=== PATIENT | female | born 1935 | race Caucasian/White ===

== ENCOUNTER 2016-04-10 17:03 | Observation (INO) | payer MEDICARE, MEDICAID ==
[2016-04-10 18:09] LABS: AUTOMATED BASOPHIL 0.9 % (0-2); AUTOMATED EOSINOPHIL 2.3 % (0-5); AUTOMATED LYMPH 31.8 % (17-44); AUTOMATED MONOCYTE 8.2 % (3-10); AUTOMATED NEUTROPHIL 56.8 % (45-76); MPV 12.2 fL (7.4-10.4)
[2016-04-10 18:20] LABS: PARTIAL THROMB. TIME 23.8 SEC (22-35)
[2016-04-10 18:29] LABS: BLOOD UREA NITROGEN 23 MG/DL (7-17); CALCIUM 9.8 MG/DL (8.4-10.2); CALCULATED OSMOLALITY 275 MOs/Kg (270-290); CHLORIDE 101 mEq/L (98-107); GLUCOSE 127 MG/DL (70-99); SODIUM LEVEL 140 mEq/L (137-146); TOTAL PROTEIN 7.8 G/DL (6.3-8.2)
[2016-04-10 19:10] LABS: LEUKOCYTES/URINE 2+ (NEGATIVE); URINE OCCULT BLOOD 1+ (NEG/TRACE); WBC/URINE 30-40 (0-5)
--- NOTE | 2016-04-10 19:11 | DIRPT ---
CLINICAL DATA: Chest pain. EXAM: PORTABLE CHEST 1 VIEW COMPARISON: None. FINDINGS: Cardiomediastinal silhouette is normal. Mediastinal contours appear intact. Mixed dense structure overlying the lower mid thorax likely represents hiatal hernia. Atherosclerotic calcifications and tortuosity of the aorta are noted. There is no evidence of focal airspace consolidation, pleural effusion or pneumothorax. Osseous structures are without acute abnormality. Soft tissues are grossly normal. IMPRESSION: No active disease. Electronically Signed By: mAber Loredo M.D. On: 04/10/2016 19:08
[2016-04-10 19:15] LABS: NITRITE/URINE POS (NEGATIVE)
[2016-04-10] MEDS ORDERED: Levofloxacin 750 mg/150 ml D5W 750 MG/150 ML RTU IV ONE (19:30)
--- NOTE | 2016-04-10 19:38 | EDPRACDOC ---
- General Information Information Source: Patient, Family - History of Present Illness Onset: yesterday Exact Onset of Symptoms: Unknown HPI: PT PRESENTS TODAY WITH FAMILY FOR AMS. FAMILY STATES THAT PT TENDS TO HALLUCINATE WHEN SHE GETS A UTI. PT HAS SEVERAL CHRONIC COMPLAINTS ("SOMETIMES " CP, SHOB, DIARRHEA, LEG PAIN). FAMILY STATES THAT PT HAS BEEN SEEING VEHICLES IN THE DRIVE WAY AND A MAN LAYING AT THE FOOT OF HER BED. PT DOES NOT APPEAR TO BE IN DISTRESS. FAMILY DENIES ANY OTHER SYMPTOMS. Symptoms began: Gradually Duration: Since Onset Symptoms Currently: Reports: Unchanged Altered Quality: Reports: Change in Behavior, Confusion Altered Severity: Reports: Moderate Recent Symptoms of: Reports: None Relevant History: Reports: None <Jessica Shaffer - Last Filed: 04/10/16 19:40> <Myla Rojas - Last Filed: 04/10/16 19:42> - General Information Chief Complaint: Altered Mental Status Stated Complaint: ? UTI PER FAMILY Time Seen by Provider: 04/10/16 18:38 Home Medications: Home Medications Aspirin [Aspirin, Chewable] 81 mg PO DAILY 06/20/12 Celecoxib (anti-inflammatory) [Celebrex] 200 mg PO DAILY 05/15/13 CloNIDine (Antihypertensive) [Catapres] 0.1 mg PO HS 05/15/13 Diazepam [Valium] 5 mg PO DAILY PRN 05/15/13 Hydrocodone/Acetaminophen [Hydrocodon-Acetaminoph 7.5-325] 1 tab PO TID PRN Pravastatin [Pravachol] 80 mg PO HS 05/15/13 Cholecalciferol [Vitamin D3 (cholecalciferol)] 1,000 units PO DAILY 11/25/13 Cyanocobalamin (Vitamin B-12) [Vitamin B-12] 1,000 mcg PO DAILY 11/25/13 Duloxetine HCl 30 mg PO DAILY 11/25/13 Acetaminophen Tablet [TYLENOL Tablet] 650 mg PO TID 04/10/16 Metoprolol Tartrate [Lopressor] 25 mg PO BID 04/10/16 Olanzapine [Zyprexa] 2.5 mg PO 2000 04/10/16 Valsartan/Hydrochlorothiazide [Valsartan-Hctz 320-25 mg Tab] 1 tab PO DAILY Allergies/Adverse Reactions: Allergies Allergy/AdvReac Type Severity Reaction Status Date / Time fentanyl Allergy See Verified 04/10/16 17:45 Comments niacin Allergy Rash-Genera Verified 04/10/16 17:45 [From Niaspan lized Extended-Release] ED Past Medical History - History Reviewed Yes Nurses notes reviewed and agree except as marked - Patient Medical History Cardiac History: Reports: Hypertension, Hypercholesterolemia Respiratory History: Denies: Pneumonia GI/ History: Reports: Urinary Tract Infection, Gastroesophageal Reflux Musculoskeletal History: Reports: Arthritis (Worse in back, hands), Osteoarthritis Psychological History: Reports: Anxiety. Denies: Depression Systemic History: Denies: Cancer Surgical History: Reports: Hysterectomy ([facility] 1976). Denies: Tonsillectomy/ Adnoidectomy - Family Medical History Reports: Cancer (MOM-STOMACH) - Social Medical History Smoking Status: Former smoker Social History: Denies: Barbiturate Use <Jessica Shaffer - Last Filed: 04/10/16 19:40> EDM Review of Systems - Review of Systems ROS Negative Except as Marked: Yes All systems reviewed and were negative except as marked ROS Unobtainable: Yes Hx Limited due to age/level of understanding of patient Constitutional: No Symptoms Reported Respiratory: Shortness of Breath ("SOMETIMES") Cardiovascular: Chest Pain ("SOMETIMES") Gastrointestinal: Diarrhea (X 4 MONTHS) Genitourinary: No Symptoms Reported Neurological: Other (HALLUCINATIONS) Musculoskeletal: Leg (CHRONIC PAIN) Integumentary: No Symptoms Reported <Jessica Shaffer - Last Filed: 04/10/16 19:40> - Physical Exam Constitutional: Alert (Awake), No apparent distress Oriented to: Time, Person, Place Last recorded Vital Signs: Last Vital Signs Temp 98.5 F 04/10/16 17:45 Pulse 87 04/10/16 17:47 Resp 18 04/10/16 17:47 BP 155/85 04/10/16 17:47 Pulse Ox 100 04/10/16 17:47 Oxygen Pulse Oxygen Saturation 100 O2 Device Room Air Oxygen Flow Rate Fraction of Inspired Oxygen ( FIO2) - HEENT Head: Normal Eye Exam: Normal Neck: Normal, Denies Pain, Midline - Respiratory/Cardiovascular Respiratory: Normal - CTA Cardiovascular: Normal - GI Auscultation: Normal Palpation: Normal Tenderness: Non tender - Musculoskeletal Back: Normal Extremities: Normal - Integumentary Skin: Normal Lymphatics: Normal - Neurologic Cerebellar: Unable to Test <Jessica Shaffer - Last Filed: 04/10/16 19:40> - Physical Exam Last recorded Vital Signs: Last Vital Signs Temp 98.5 F 04/10/16 17:45 Pulse 87 04/10/16 17:47 Resp 18 04/10/16 17:47 BP 155/85 04/10/16 17:47 Pulse Ox 100 04/10/16 17:47 Oxygen Pulse Oxygen Saturation 100 O2 Device Room Air Oxygen Flow Rate Fraction of Inspired Oxygen ( FIO2) <Myla Rojas - Last Filed: 04/10/16 19:42> - Results 04/10/16 17:50 04/10/16 17:50 WBC 8.3 xk/uL (3.8-10.8) 04/10/16 17:50 RBC 4.42 xM/uL (4.20-5.40) 04/10/16 17:50 Hgb 13.8 g/dL (12.0-16.0) 04/10/16 17:50 Hct 40.6 % (36-47) 04/10/16 17:50 MCV 92 fL (81-99) 04/10/16 17:50 MCH 31.3 pg (27-32) 04/10/16 17:50 MCHC 34.0 g/dl (33-36) 04/10/16 17:50 RDW 13.9 % (11.5-14.5) 04/10/16 17:50 Plt Count 126 xk/uL (130-400) L 04/10/16 17:50 MPV 12.2 fL (7.4-10.4) H 04/10/16 17:50 Neut % (Auto) 56.8 % (45-76) 04/10/16 17:50 Lymph % (Auto) 31.8 % (17-44) 04/10/16 17:50 [place] % (Auto) 8.2 % (3-10) 04/10/16 17:50 Eos % (Auto) 2.3 % (0-5) 04/10/16 17:50 Baso % (Auto) 0.9 % (0-2) 04/10/16 17:50 Absolute Neuts (auto) 4.65 xk/uL (1.7-8.2) 04/10/16 17:50 Absolute Lymphs (auto) 2.57 xk/uL (0.65-4.75) 04/10/16 17:50 PT 10.7 SEC (9.2-11.2) 04/10/16 17:50 INR 1.0 04/10/16 17:50 APTT 23.8 SEC (22-35) 04/10/16 17:50 Sodium 140 mEq/L (137-146) 04/10/16 17:50 Potassium 4.6 mEq/L (3.5-5.1) 04/10/16 17:50 Chloride 101 mEq/L (98-107) 04/10/16 17:50 Carbon Dioxide 26 mMOL/L (22-33) 04/10/16 17:50 Anion Gap 18 mEq/L (8-16) H 04/10/16 17:50 BUN 23 MG/DL (7-17) H 04/10/16 17:50 Creatinine 1.00 MG/DL (0.52-1.04) 04/10/16 17:50 Estimated GFR (MDRD) 53 mL/min (>=60) L 04/10/16 17:50 Glucose 127 MG/DL (70-99) H 04/10/16 17:50 Calculated Osmolality 275 MOs/Kg (270-290) 04/10/16 17:50 Calcium 9.8 MG/DL (8.4-10.2) 04/10/16 17:50 Total Bilirubin 0.8 MG/DL (0.2-1.3) 04/10/16 17:50 AST 36 IU/L (14-36) 04/10/16 17:50 ALT 41 IU/L (9-52) 04/10/16 17:50 Alkaline Phosphatase 100 IU/L (55-165) 04/10/16 17:50 Troponin I < 0.01 ng/mL (<.04) 04/10/16 17:50 Ohp-N-Eijvqjsishf Pept 341 pg/mL (0-1800) 04/10/16 17:50 Total Protein 7.8 G/DL (6.3-8.2) 04/10/16 17:50 Albumin 4.4 G/DL (3.5-5.0) 04/10/16 17:50 Urine Color Yellow 04/10/16 18:15 Urine Clarity Hazy 04/10/16 18:15 Urine pH 5.0 (5.0-8.0) 04/10/16 18:15 Ur Specific Archie 1.030 (1.003-1.035) 04/10/16 18:15 Urine Protein 1+ (NEG/TRACE) H 04/10/16 18:15 Urine Glucose (UA) Neg (NEGATIVE) 04/10/16 18:15 Urine Ketones Neg (NEGATIVE) 04/10/16 18:15 Urine Occult Blood 1+ (NEG/TRACE) H 04/10/16 18:15 Urine Nitrite Pos (NEGATIVE) H 04/10/16 18:15 Urine Bilirubin Neg (NEGATIVE) 04/10/16 18:15 Urine Urobilinogen <2.0 MG/DL (0-1) 04/10/16 18:15 Ur Leukocyte Esterase 2+ (NEGATIVE) H 04/10/16 18:15 Urine RBC 2-5 (0-5) 04/10/16 18:15 Urine WBC 30-40 (0-5) H 04/10/16 18:15 Urine WBC Clumps Present (NONE) H 04/10/16 18:15 Ur Epithelial Cells 2+ 04/10/16 18:15 Urine Bacteria 4+ (NEG/FEW) H 04/10/16 18:15 Hyaline Casts 5-10 (0-2) H 04/10/16 18:15 Urine Mucus Mod (NEG/OCC) H 04/10/16 18:15 Lab Results 04/10/16 04/10/16 04/10/16 18:15 17:50 17:50 WBC 8.3 RBC 4.42 Hgb 13.8 Hct 40.6 MCV 92 MCH 31.3 MCHC 34.0 RDW 13.9 Plt Count 126 L MPV 12.2 H Neut % (Auto) 56.8 Lymph % (Auto) 31.8 [place] % (Auto) 8.2 Eos % (Auto) 2.3 Baso % (Auto) 0.9 Absolute Neuts (auto) 4.65 Absolute Lymphs (auto) 2.57 PT 10.7 INR 1.0 APTT 23.8 Sodium Potassium Chloride Carbon Dioxide Anion Gap BUN Creatinine Estimated GFR (MDRD) Glucose Calculated Osmolality Calcium Total Bilirubin AST ALT Alkaline Phosphatase Troponin I Vft-F-Ijxrkjewdnx Pept Total Protein Albumin Urine Color Yellow Urine Clarity Hazy Urine pH 5.0 Ur Specific Archie 1.030 Urine Protein 1+ H Urine Glucose (UA) Neg Urine Ketones Neg Urine Occult Blood 1+ H Urine Nitrite Pos H Urine Bilirubin Neg Urine Urobilinogen <2.0 Ur Leukocyte Esterase 2+ H Urine RBC 2-5 Urine WBC 30-40 H Urine WBC Clumps Present H Ur Epithelial Cells 2+ Urine Bacteria 4+ H Hyaline Casts 5-10 H Urine Mucus Mod H 04/10/16 17:50 WBC RBC Hgb Hct MCV MCH MCHC RDW Plt Count MPV Neut % (Auto) Lymph % (Auto) [place] % (Auto) Eos % (Auto) Baso % (Auto) Absolute Neuts (auto) Absolute Lymphs (auto) PT INR APTT Sodium 140 Potassium 4.6 Chloride 101 Carbon Dioxide 26 Anion Gap 18 H BUN 23 H Creatinine 1.00 Estimated GFR (MDRD) 53 L Glucose 127 H Calculated Osmolality 275 Calcium 9.8 Total Bilirubin 0.8 AST 36 ALT 41 Alkaline Phosphatase 100 Troponin I < 0.01 Mac-E-Pyoovgshryp Pept 341 Total Protein 7.8 Albumin 4.4 Urine Color Urine Clarity Urine pH Ur Specific Archie Urine Protein Urine Glucose (UA) Urine Ketones Urine Occult Blood Urine Nitrite Urine Bilirubin Urine Urobilinogen Ur Leukocyte Esterase Urine RBC Urine WBC Urine WBC Clumps Ur Epithelial Cells Urine Bacteria Hyaline Casts Urine Mucus <Jessica Shaffer K - Last Filed: 04/10/16 19:40> - Results 04/10/16 17:50 04/10/16 17:50 WBC 8.3 xk/uL (3.8-10.8) 04/10/16 17:50 RBC 4.42 xM/uL (4.20-5.40) 04/10/16 17:50 Hgb 13.8 g/dL (12.0-16.0) 04/10/16 17:50 Hct 40.6 % (36-47) 04/10/16 17:50 MCV 92 fL (81-99) 04/10/16 17:50 MCH 31.3 pg (27-32) 04/10/16 17:50 MCHC 34.0 g/dl (33-36) 04/10/16 17:50 RDW 13.9 % (11.5-14.5) 04/10/16 17:50 Plt Count 126 xk/uL (130-400) L 04/10/16 17:50 MPV 12.2 fL (7.4-10.4) H 04/10/16 17:50 Neut % (Auto) 56.8 % (45-76) 04/10/16 17:50 Lymph % (Auto) 31.8 % (17-44) 04/10/16 17:50 [place] % (Auto) 8.2 % (3-10) 04/10/16 17:50 Eos % (Auto) 2.3 % (0-5) 04/10/16 17:50 Baso % (Auto) 0.9 % (0-2) 04/10/16 17:50 Absolute Neuts (auto) 4.65 xk/uL (1.7-8.2) 04/10/16 17:50 Absolute Lymphs (auto) 2.57 xk/uL (0.65-4.75) 04/10/16 17:50 PT 10.7 SEC (9.2-11.2) 04/10/16 17:50 INR 1.0 04/10/16 17:50 APTT 23.8 SEC (22-35) 04/10/16 17:50 Sodium 140 mEq/L (137-146) 04/10/16 17:50 Potassium 4.6 mEq/L (3.5-5.1) 04/10/16 17:50 Chloride 101 mEq/L (98-107) 04/10/16 17:50 Carbon Dioxide 26 mMOL/L (22-33) 04/10/16 17:50 Anion Gap 18 mEq/L (8-16) H 04/10/16 17:50 BUN 23 MG/DL (7-17) H 04/10/16 17:50 Creatinine 1.00 MG/DL (0.52-1.04) 04/10/16 17:50 Estimated GFR (MDRD) 53 mL/min (>=60) L 04/10/16 17:50 Glucose 127 MG/DL (70-99) H 04/10/16 17:50 Calculated Osmolality 275 MOs/Kg (270-290) 04/10/16 17:50 Calcium 9.8 MG/DL (8.4-10.2) 04/10/16 17:50 Total Bilirubin 0.8 MG/DL (0.2-1.3) 04/10/16 17:50 AST 36 IU/L (14-36) 04/10/16 17:50 ALT 41 IU/L (9-52) 04/10/16 17:50 Alkaline Phosphatase 100 IU/L (55-165) 04/10/16 17:50 Troponin I < 0.01 ng/mL (<.04) 04/10/16 17:50 Djm-U-Pbmduvaqlmq Pept 341 pg/mL (0-1800) 04/10/16 17:50 Total Protein 7.8 G/DL (6.3-8.2) 04/10/16 17:50 Albumin 4.4 G/DL (3.5-5.0) 04/10/16 17:50 Urine Color Yellow 04/10/16 18:15 Urine Clarity Hazy 04/10/16 18:15 Urine pH 5.0 (5.0-8.0) 04/10/16 18:15 Ur Specific Archie 1.030 (1.003-1.035) 04/10/16 18:15 Urine Protein 1+ (NEG/TRACE) H 04/10/16 18:15 Urine Glucose (UA) Neg (NEGATIVE) 04/10/16 18:15 Urine Ketones Neg (NEGATIVE) 04/10/16 18:15 Urine Occult Blood 1+ (NEG/TRACE) H 04/10/16 18:15 Urine Nitrite Pos (NEGATIVE) H 04/10/16 18:15 Urine Bilirubin Neg (NEGATIVE) 04/10/16 18:15 Urine Urobilinogen <2.0 MG/DL (0-1) 04/10/16 18:15 Ur Leukocyte Esterase 2+ (NEGATIVE) H 04/10/16 18:15 Urine RBC 2-5 (0-5) 04/10/16 18:15 Urine WBC 30-40 (0-5) H 04/10/16 18:15 Urine WBC Clumps Present (NONE) H 04/10/16 18:15 Ur Epithelial Cells 2+ 04/10/16 18:15 Urine Bacteria 4+ (NEG/FEW) H 04/10/16 18:15 Hyaline Casts 5-10 (0-2) H 04/10/16 18:15 Urine Mucus Mod (NEG/OCC) H 04/10/16 18:15 Lab Results 04/10/16 04/10/16 04/10/16 18:15 17:50 17:50 WBC 8.3 RBC 4.42 Hgb 13.8 Hct 40.6 MCV 92 MCH 31.3 MCHC 34.0 RDW 13.9 Plt Count 126 L MPV 12.2 H Neut % (Auto) 56.8 Lymph % (Auto) 31.8 [place] % (Auto) 8.2 Eos % (Auto) 2.3 Baso % (Auto) 0.9 Absolute Neuts (auto) 4.65 Absolute Lymphs (auto) 2.57 PT 10.7 INR 1.0 APTT 23.8 Sodium Potassium Chloride Carbon Dioxide Anion Gap BUN Creatinine Estimated GFR (MDRD) Glucose Calculated Osmolality Calcium Total Bilirubin AST ALT Alkaline Phosphatase Troponin I Jxl-P-Hvrnhdftscr Pept Total Protein Albumin Urine Color Yellow Urine Clarity Hazy Urine pH 5.0 Ur Specific Archie 1.030 Urine Protein 1+ H Urine Glucose (UA) Neg Urine Ketones Neg Urine Occult Blood 1+ H Urine Nitrite Pos H Urine Bilirubin Neg Urine Urobilinogen <2.0 Ur Leukocyte Esterase 2+ H Urine RBC 2-5 Urine WBC 30-40 H Urine WBC Clumps Present H Ur Epithelial Cells 2+ Urine Bacteria 4+ H Hyaline Casts 5-10 H Urine Mucus Mod H 04/10/16 17:50 WBC RBC Hgb Hct MCV MCH MCHC RDW Plt Count MPV Neut % (Auto) Lymph % (Auto) [place] % (Auto) Eos % (Auto) Baso % (Auto) Absolute Neuts (auto) Absolute Lymphs (auto) PT INR APTT Sodium 140 Potassium 4.6 Chloride 101 Carbon Dioxide 26 Anion Gap 18 H BUN 23 H Creatinine 1.00 Estimated GFR (MDRD) 53 L Glucose 127 H Calculated Osmolality 275 Calcium 9.8 Total Bilirubin 0.8 AST 36 ALT 41 Alkaline Phosphatase 100 Troponin I < 0.01 Opm-P-Odsaqfgbuka Pept 341 Total Protein 7.8 Albumin 4.4 Urine Color Urine Clarity Urine pH Ur Specific Archie Urine Protein Urine Glucose (UA) Urine Ketones Urine Occult Blood Urine Nitrite Urine Bilirubin Urine Urobilinogen Ur Leukocyte Esterase Urine RBC Urine WBC Urine WBC Clumps Ur Epithelial Cells Urine Bacteria Hyaline Casts Urine Mucus <Myla Rojas - Last Filed: 04/10/16 19:42> - Departure Disposition: Admit IP To This Hospital Decision to Admit Time: 19:40 Decision to admit date: 04/10/16 Decision to admit: from ED <Jessica Shaffer - Last Filed: 04/10/16 19:40> - Departure Education/Counseling Given To: Patient Education/Counseling Given Regarding: Diagnosis, Treatment - Physician Consulted Hospitalist Provider Called: Jose J Rodriguez <Myla Rojas - Last Filed: 04/10/16 19:42> - Departure Condition: Fair Final Diagnosis: Delirium Urinary tract infection Qualifiers: Urinary tract infection type: acute cystitis Hematuria presence: with hematuria Qualified Code(s): N30.01 - Acute cystitis with hematuria Instructions: Urinary Tract Infection in Women (ED), Dysuria Referrals: Johana Day NP [Primary Care Provider] - One Week
[2016-04-10] MEDS ORDERED: DIAZEPAM 5 MG TAB PO PRN (19:46)
--- NOTE | 2016-04-10 19:46 | HISTPHYS ---
- Chief Complaint Confusion, altered mental status - History of Present Illness This is an 80-year-old female with a history of scoliosis and chronic back pain who was being admitted to the hospital [facility] due to urinary tract infection. The patient lives with her son, who takes recalls care of her. He notes that over the last couple of nights, she has been quite confused and hallucinating. She has no specific complaints. Currently, she is at rest and awake and alert and oriented x3, she denies any chest pain, shortness of breath, nausea, vomiting, fevers or chills. Her son does mention that she did feel warm to touch earlier today. No therapies prior to arrival. No sick contacts, rashes on the skin, nausea vomiting or abdominal pain. - Medical History Cardiac History: Reports: Hypertension, Hypercholesterolemia Respiratory History: Denies: Pneumonia GI/ History: Reports: Urinary Tract Infection, Gastroesophageal Reflux Musculoskeletal History: Reports: Arthritis (Worse in back, hands), Osteoarthritis Systemic History: Denies: Cancer Psychological History: Reports: Anxiety. Denies: Depression - Surgical History Reports: Hysterectomy ([facility] 1976). Denies: Tonsillectomy/Adnoidectomy - Medictions/Allergies Allergies fentanyl Allergy (Verified 04/10/16 17:45) See Comments OVER-SEDATION. niacin [From Niaspan Extended-Release] Allergy (Verified 04/10/16 17:45) Rash-Generalized Home Medications Aspirin [Aspirin, Chewable] 81 mg PO DAILY 06/20/12 Celecoxib (anti-inflammatory) [Celebrex] 200 mg PO DAILY 05/15/13 CloNIDine (Antihypertensive) [Catapres] 0.1 mg PO HS 05/15/13 Diazepam [Valium] 5 mg PO DAILY PRN 05/15/13 Hydrocodone/Acetaminophen [Hydrocodon-Acetaminoph 7.5-325] 1 tab PO TID PRN Pravastatin [Pravachol] 80 mg PO HS 05/15/13 Cholecalciferol [Vitamin D3 (cholecalciferol)] 1,000 units PO DAILY 11/25/13 Cyanocobalamin (Vitamin B-12) [Vitamin B-12] 1,000 mcg PO DAILY 11/25/13 Duloxetine HCl 30 mg PO DAILY 11/25/13 Acetaminophen Tablet [TYLENOL Tablet] 650 mg PO TID 04/10/16 Metoprolol Tartrate [Lopressor] 25 mg PO BID 04/10/16 Olanzapine [Zyprexa] 2.5 mg PO 2000 04/10/16 Valsartan/Hydrochlorothiazide [Valsartan-Hctz 320-25 mg Tab] 1 tab PO DAILY - Family History Reports: Cancer (MOM-STOMACH) - Social History Smoking Status: Former smoker Social History: Denies: Barbiturate Use - Review of Systems Yes All systems reviewed and were negative except as marked (And as mentioned in the history of present illness above.) - Physical Exam Vital Signs: Initial Vitals Temperature 98.5 F 04/10/16 17:45 Pulse Rate 87 04/10/16 17:45 Respiratory Rate 18 04/10/16 17:45 Blood Pressure 155/85 04/10/16 17:45 Pulse Oxygen Saturation 94 04/10/16 17:45 Constitutional: Alert (Awake, Fully oriented, well appearing. No apparent distress) Oriented to: Time, Person, Place - HEENT Head: Normal (normocephalic,atraumatic, trachea midline) Eye: Normal (EOMI, Sclera white) Oropharynx: Normal (moist) Nose: No Symptoms Reported (without discharge or bleeding) Respiratory: Normal - CTA (Clear to auscultation bilaterally, no wheezing,rales or rhonchi. No use of accessory muscles) Cardiovascular: Normal (RRR, no murmurs, rubs or gallops) - GI Palpation: Normal (soft, non distended and nontender) - Musculoskeletal Extremities: Normal (normal tone, no cyanosis or edema) - Integumentary Skin: Normal (no rashes or lesions) - Neurologic Cranial Nerve: Normal (CN II-XII intact) Mood Description: Normal (Fully oriented and appropiate affect) - Focused CV Perfusion Exam Vital Signs: Last Vital Signs Temp 98.5 F 04/10/16 17:45 Pulse 87 04/10/16 17:47 Resp 18 04/10/16 17:47 BP 155/85 04/10/16 17:47 Pulse Ox 100 04/10/16 17:47 - Lab Results Laboratory Tests 04/10/16 04/10/16 04/10/16 17:50 17:50 18:15 WBC 8.3 Hgb 13.8 Hct 40.6 Potassium 4.6 BUN 23 H Creatinine 1.00 Urine Protein 1+ H Ur Leukocyte Esterase 2+ H Urine WBC 30-40 H Urine WBC Clumps Present H - Assessment (1) Urinary tract infection N39.0 - URINARY TRACT INFECTION, SITE NOT SPECIFIED Acute Qualifiers: Urinary tract infection type: acute cystitis Hematuria presence: with hematuria Indwelling urinary catheter type: I Encounter type: E Qualified Code(s): N30.01 - Acute cystitis with hematuria With confusion, subjective fever at home and dirty urinalysis. Treat empirically with IV Levaquin. Follow-up urine culture in adjust antibiotic therapy accordingly. (2) Metabolic encephalopathy G93.41 - METABOLIC ENCEPHALOPATHY Acute Has been confused and hallucinating , due to urinary tract infection, treating as above. (3) Intractable back pain M54.9 - DORSALGIA, UNSPECIFIED Acute Continue patient's home oral home pain medications. (4) Hypertension I10 - ESSENTIAL (PRIMARY) HYPERTENSION Acute Qualifiers: Hypertension type: H Continue home medication.
[2016-04-10] MEDS ORDERED: ONDANSETRON HCL 4 MG/2 ML VIAL IV PRN (19:47)
[2016-04-10] MEDS ORDERED: ACETAMINOPHEN 325 MG/TAB TABLET PO PRN (19:47)
[2016-04-10] MEDS ORDERED: ALBUTEROL 0.083% 3 ML NEB NEB PRN (19:47)
--- NOTE | 2016-04-10 19:47 | DIRPT ---
CLINICAL DATA: Altered mental status, hallucinations EXAM: CT HEAD WITHOUT CONTRAST TECHNIQUE: Contiguous axial images were obtained from the base of the skull through the vertex without intravenous contrast. COMPARISON: MR brain 06/17/2015 FINDINGS: There is no evidence of mass effect, midline shift, or extra-axial fluid collections. There is no evidence of a space-occupying lesion or intracranial hemorrhage. There is no evidence of a cortical-based area of acute infarction. There is generalized cerebral atrophy. There is periventricular white matter low attenuation likely secondary to microangiopathy. The ventricles and sulci are appropriate for the patient's age. The basal cisterns are patent. Visualized portions of the orbits are unremarkable. The visualized portions of the paranasal sinuses and mastoid air cells are unremarkable. Cerebrovascular atherosclerotic calcifications are noted. The osseous structures are unremarkable. IMPRESSION: 1. No acute intracranial pathology. 2. Chronic microvascular disease and cerebral atrophy. Electronically Signed By: Kirstie Castellanos On: 04/10/2016 19:44
[2016-04-10] MEDS ORDERED: HYDROCODONE 5 MG/ACETAMIN 325 MG TAB PO PRN (20:11)
[2016-04-10] MEDS: METOPROLOL TARTRATE 25 MG TAB PO SCH (20:55)
[2016-04-10] MEDS: ACETAMINOPHEN 325 MG/TAB TABLET PO SCH (20:55)
[2016-04-10] MEDS: PRAVASTATIN 80 MG TABLET PO SCH (21:02)
[2016-04-10] MEDS: ENOXAPARIN 40 MG/0.4 ML PFS SQ SCH (21:02)
[2016-04-10] MEDS: OLANZAPINE 2.5 MG TAB PO SCH (21:02)
[2016-04-10] MEDS: NS/KCl 20 mEq 1,000 ML IV SCH (21:06)
[2016-04-11] MEDS ORDERED: Vaccine Screening Complete SCH (02:00)
[2016-04-11] MEDS: ACETAMINOPHEN 325 MG/TAB TABLET PO SCH ×3 (05:25→21:53)
[2016-04-11 07:18] LABS: MPV 10.3 fL (7.4-10.4)
[2016-04-11 07:19] LABS: BLOOD UREA NITROGEN 20 MG/DL (7-17); CALCIUM 9.5 MG/DL (8.4-10.2); CALCULATED OSMOLALITY 278 MOs/Kg (270-290); CHLORIDE 105 mEq/L (98-107); GLUCOSE 126 MG/DL (70-99); SODIUM LEVEL 142 mEq/L (137-146)
[2016-04-11] MEDS: Celecoxib 200 MG CAP PO SCH (08:21)
[2016-04-11] MEDS: ASPIRIN (CHEWABLE) 81 MG TAB PO SCH (08:21)
[2016-04-11] MEDS: DULOXETINE 30 MG CAP PO SCH (08:21)
[2016-04-11] MEDS: HYDROCHLOROTHIAZIDE 25 MG TAB PO SCH (08:22)
[2016-04-11] MEDS: METOPROLOL TARTRATE 25 MG TAB PO SCH ×2 (08:22→21:53)
[2016-04-11] MEDS: VALSARTAN 160 MG TAB PO SCH (08:22)
[2016-04-11] MEDS: NS/KCl 20 mEq 1,000 ML IV SCH ×3 (11:53→21:57)
--- NOTE | 2016-04-11 15:32 | GENMEDPROG ---
Subjective Note: Patient in bed responsive follows commands. Oriented and interactive. Still fair amount of suprapubic and flank pain. Denies any nausea vomiting, Notes Reviewed: Yes Events from last night noted and discussed with Clinical Staff Current Medication List: Reviewed Currently: Reports: ORTIZ, Reflux Sx, Abdominal Pain DVT Prophylaxis: Yes - Physical Examination Vital Signs and I&O: Last Vital Signs Temp 97.8 F 04/11/16 15:00 Pulse 70 04/11/16 15:17 Resp 18 04/11/16 15:00 BP 121/59 L 04/11/16 15:00 Pulse Ox 93 04/11/16 15:00 Oxygen Pulse Oxygen Saturation 93 O2 Device Room Air Oxygen Flow Rate Fraction of Inspired Oxygen ( FIO2) Intake & Output 04/08/16 04/09/16 04/10/16 04/11/16 23:59 23:59 23:59 23:59 Intake Total 745 Output Total 1725 Balance -980 Patient's weight 84.414 kg General: Alert, Oriented x3, Cooperative, Mild distress, Weakness, Fatigue HEENT: Normal, PERRLA, EOMI, Anicteric Sclera Neck: Non-tender, Normal inspection, Limited range of motion Lymphatics: Normal Respiratory: Normal - CTA (Clear to auscultation bilaterally, no wheezing,rales or rhonchi. No use of accessory muscles), Diminished Cardiovascular: Regular rate, Normal S1, Normal S2, Murmurs GI: Normal bowel sounds, Soft, Non tender, No hepatospenomegaly, No masses, Obese, Tenderness Extremities/Musculoskeletal: Normal pulses Skin: Warm,Dry and Intact, No rashes, No breakdown, No significant lesion Neurological: Normal speech, Cranial nerves 3-12 NL Psych/Mental Status: Anxious - Assessment (1) Metabolic encephalopathy Acute G93.41 - METABOLIC ENCEPHALOPATHY Comment/Plan: Continue maximal supportive care. Minimize sedation avoid anticholinergics. (2) Urinary tract infection Acute N39.0 - URINARY TRACT INFECTION, SITE NOT SPECIFIED Qualifiers: Urinary tract infection type: acute cystitis Hematuria presence: with hematuria Indwelling urinary catheter type: I Encounter type: E Qualified Code(s): N30.01 - Acute cystitis with hematuria Comment/Plan: Continue IV antibiotic await urine culture. (3) Hypertension Acute I10 - ESSENTIAL (PRIMARY) HYPERTENSION Qualifiers: Hypertension type: essential hypertension Qualified Code(s): I10 - Essential (primary) hypertension Comment/Plan: Continue home medication. (4) Intractable back pain Chronic M54.9 - DORSALGIA, UNSPECIFIED Comment/Plan: Continue patient's home oral home pain medications. (5) Dyslipidemia Chronic E78.5 - HYPERLIPIDEMIA, UNSPECIFIED Comment/Plan: Continue Pravachol Case Care Discussed with: Patient, Family, Nursing Staff Education/Counseling Given To: Patient Education/Counseling Given Regarding: Diagnosis, Treatment, Prognosis, Follow Up Total Time: 40 min . Critical Care: No Code: 36275 (12+)
[2016-04-11] MEDS ORDERED: Levofloxacin 250 mg/50 ml D5W 250 MG/50 ML RTU IV SCH (20:00)
[2016-04-11] MEDS: ENOXAPARIN 40 MG/0.4 ML PFS SQ SCH (21:54)
[2016-04-11] MEDS: PRAVASTATIN 80 MG TABLET PO SCH (21:54)
[2016-04-11] MEDS: OLANZAPINE 2.5 MG TAB PO SCH (21:54)
[2016-04-11] MEDS: Levofloxacin 250 mg/50 ml D5W 250 MG/50 ML RTU IV SCH (23:29)
[2016-04-12] MEDS: ACETAMINOPHEN 325 MG/TAB TABLET PO SCH ×3 (05:31→20:06)
[2016-04-12 07:21] LABS: MPV 10.9 fL (7.4-10.4)
[2016-04-12 07:38] LABS: BLOOD UREA NITROGEN 16 MG/DL (7-17); CALCIUM 9.3 MG/DL (8.4-10.2); CALCULATED OSMOLALITY 276 MOs/Kg (270-290); CHLORIDE 107 mEq/L (98-107); GLUCOSE 132 MG/DL (70-99); SODIUM LEVEL 142 mEq/L (137-146)
[2016-04-12] MEDS: VALSARTAN 160 MG TAB PO SCH (09:20)
[2016-04-12] MEDS: DULOXETINE 30 MG CAP PO SCH (09:20)
[2016-04-12] MEDS: Celecoxib 200 MG CAP PO SCH (09:20)
[2016-04-12] MEDS: ASPIRIN (CHEWABLE) 81 MG TAB PO SCH (09:20)
[2016-04-12] MEDS: HYDROCHLOROTHIAZIDE 25 MG TAB PO SCH (09:21)
[2016-04-12] MEDS: METOPROLOL TARTRATE 25 MG TAB PO SCH ×3 (09:23→20:05)
[2016-04-12] MEDS: NS/KCl 20 mEq 1,000 ML IV SCH ×2 (09:49→13:59)
--- NOTE | 2016-04-12 13:17 | GENMEDPROG ---
Subjective Note: Patient in chair responsive follows commands. Since waking up patient developed neck pain and stiffness with episodes of occipital headache. Patient denies any blurring or double vision reports no nausea vomiting. Abdominal/ suprapubic pain resolved. Tolerating diet. Notes Reviewed: Yes Events from last night noted and discussed with Clinical Staff Current Medication List: Reviewed Currently: Reports: ORTIZ, Reflux Sx, Abdominal Pain DVT Prophylaxis: Yes - Physical Examination Vital Signs and I&O: Last Vital Signs Temp 96.5 F L 04/12/16 10:00 Pulse 73 04/12/16 12:00 Resp 18 04/12/16 10:00 BP 134/81 04/12/16 10:00 Pulse Ox 95 04/12/16 10:00 Oxygen Pulse Oxygen Saturation 95 O2 Device Room Air Oxygen Flow Rate Fraction of Inspired Oxygen ( FIO2) Intake & Output 04/09/16 04/10/16 04/11/16 04/12/16 23:59 23:59 23:59 23:59 Intake Total 1624 999 Output Total 3425 1200 Balance -1801 -201 Patient's weight 84.414 kg 84.368 kg General: Alert, Oriented x3, Cooperative, Mild distress, Weakness, Fatigue HEENT: Normal, PERRLA, EOMI, Anicteric Sclera Neck: Non-tender, Normal inspection, Limited range of motion Lymphatics: Normal Respiratory: Normal - CTA (Clear to auscultation bilaterally, no wheezing,rales or rhonchi. No use of accessory muscles), Diminished Cardiovascular: Regular rate, Normal S1, Normal S2, Murmurs GI: Normal bowel sounds, Soft, Non tender, No hepatospenomegaly, No masses, Obese, Tenderness Extremities/Musculoskeletal: Normal pulses Skin: Warm,Dry and Intact, No rashes, No breakdown, No significant lesion Neurological: Normal speech, Cranial nerves 3-12 NL Psych/Mental Status: Anxious - Assessment (1) Metabolic encephalopathy Acute G93.41 - METABOLIC ENCEPHALOPATHY Comment/Plan: Resolved, mentation back to normal. Patient fully alert awake oriented and interactive. Multiple family members at bedside confirmed that (2) Urinary tract infection Acute N39.0 - URINARY TRACT INFECTION, SITE NOT SPECIFIED Qualifiers: Urinary tract infection type: acute cystitis Hematuria presence: with hematuria Indwelling urinary catheter type: I Encounter type: E Qualified Code(s): N30.01 - Acute cystitis with hematuria Comment/Plan: Urine culture growing Klebsiella susceptible multiple antibiotics including penicillins and quinolones. Continue IV Levaquin (3) Hypertension Acute I10 - ESSENTIAL (PRIMARY) HYPERTENSION Qualifiers: Hypertension type: essential hypertension Qualified Code(s): I10 - Essential (primary) hypertension Comment/Plan: Continue home medication. (4) Intractable back pain Chronic M54.9 - DORSALGIA, UNSPECIFIED Comment/Plan: Continue patient's home oral home pain medications. (5) Dyslipidemia Chronic E78.5 - HYPERLIPIDEMIA, UNSPECIFIED Comment/Plan: Continue Pravachol (6) Neck pain Chronic M54.2 - CERVICALGIA Comment/Plan: Acute on chronic, due to DDD of the cervical spine. Adjust pain meds Case Care Discussed with: Patient, Family, Nursing Staff, Director Software Education/Counseling Given To: Patient Education/Counseling Given Regarding: Diagnosis, Treatment, Prognosis, Follow Up Total Time: 45 min Critical Care: No Code: 04340 (12+)
[2016-04-12] MEDS ORDERED: LIDOCAINE 5% PATCH TOP SCH (14:00)
[2016-04-12] MEDS: OLANZAPINE 2.5 MG TAB PO SCH (20:05)
[2016-04-12] MEDS: PRAVASTATIN 80 MG TABLET PO SCH (20:06)
[2016-04-12] MEDS: ENOXAPARIN 40 MG/0.4 ML PFS SQ SCH (22:04)
[2016-04-12] MEDS: Levofloxacin 250 mg/50 ml D5W 250 MG/50 ML RTU IV SCH (22:04)
[2016-04-13] MEDS ORDERED: REMOVE PATCH MAR ALERT SCH (02:00)
[2016-04-13] MEDS: NS/KCl 20 mEq 1,000 ML IV SCH ×2 (02:22→04:58)
[2016-04-13] MEDS: ACETAMINOPHEN 325 MG/TAB TABLET PO SCH (04:59)
[2016-04-13 05:51] VITALS: PULSE 64; BMI 35.5
[2016-04-13 07:31] LABS: MPV 9.7 fL (7.4-10.4)
[2016-04-13 07:39] LABS: BLOOD UREA NITROGEN 16 MG/DL (7-17); CALCIUM 9.5 MG/DL (8.4-10.2); CALCULATED OSMOLALITY 275 MOs/Kg (270-290); CHLORIDE 107 mEq/L (98-107); GLUCOSE 111 MG/DL (70-99); SODIUM LEVEL 142 mEq/L (137-146)
[2016-04-13] MEDS: METOPROLOL TARTRATE 25 MG TAB PO SCH (08:44)
[2016-04-13] MEDS: HYDROCHLOROTHIAZIDE 25 MG TAB PO SCH (08:44)
[2016-04-13] MEDS: ASPIRIN (CHEWABLE) 81 MG TAB PO SCH (08:44)
[2016-04-13] MEDS: DULOXETINE 30 MG CAP PO SCH (08:44)
[2016-04-13] MEDS: Celecoxib 200 MG CAP PO SCH (08:44)
[2016-04-13] MEDS: VALSARTAN 160 MG TAB PO SCH (08:44)
[2016-04-13] MEDS ORDERED: Non-Formulary Medication ITEM (Cyanocobalamin (Vitamin B-12) [Vitamin B-12] 1,000 MCG) PO SCH (09:00)
[2016-04-13 09:37] VITALS: BP 137/86; TEMP 97.8
--- NOTE | 2016-04-13 10:17 | PCM.DCS92 ---
- Final/Secondary Discharge Diagnosis (1) Metabolic encephalopathy Resolved G93.41 - METABOLIC ENCEPHALOPATHY Present on Admission: Yes Comment: Resolved, mentation back to normal. Patient fully alert awake oriented and interactive. Multiple family members at bedside confirmed that (2) Urinary tract infection Acute N39.0 - URINARY TRACT INFECTION, SITE NOT SPECIFIED Present on Admission: Yes acute cystitis with hematuria I E N30.01 - Acute cystitis with hematuria Comment: Urine culture growing Klebsiella susceptible multiple antibiotics including penicillins and quinolones. Continue po Levaquin (3) Hypertension Acute I10 - ESSENTIAL (PRIMARY) HYPERTENSION Present on Admission: Yes essential hypertension I10 - Essential (primary) hypertension Comment: Continue home medication. (4) Intractable back pain Chronic M54.9 - DORSALGIA, UNSPECIFIED Present on Admission: Yes Comment: Continue patient's home oral home pain medications. (5) Dyslipidemia Chronic E78.5 - HYPERLIPIDEMIA, UNSPECIFIED Present on Admission: Yes Comment: Continue Pravachol (6) Neck pain Chronic M54.2 - CERVICALGIA Present on Admission: Yes Comment: Acute on chronic, due to DDD of the cervical spine. Adjust pain meds Discharge Disposition: Home Discharge Condition: Fair Cognitive Discharge Status: Unimpaired Fuctional Discharge Status: Walker Assistance Physician Follow up/Referrals: Johana Day NP [Primary Care Provider] - 3-4 Days Home Medications / New Prescriptions: New Valsartan [Diovan] 320 mg PO DAILY #30 tab L.acidoph/B.animalis/B.longum [Florajen3 Capsule] 460 mg PO DAILY #60 capsule Levofloxacin [Levaquin] 750 mg PO DAILY #3 tablet Zaleplon [Sonata] 10 mg PO HS #30 capsule Continue Aspirin [Aspirin, Chewable] 81 mg PO DAILY Celecoxib (anti-inflammatory) [Celebrex] 200 mg PO DAILY Hydrocodone/Acetaminophen [Hydrocodon-Acetaminoph 7.5-325] 1 tab PO TID PRN PRN Reason: Pain Pravastatin [Pravachol] 80 mg PO HS CloNIDine (Antihypertensive) [Catapres] 0.1 mg PO HS Duloxetine HCl 30 mg PO DAILY Cyanocobalamin (Vitamin B-12) [Vitamin B-12] 1,000 mcg PO DAILY Cholecalciferol [Vitamin D3 (cholecalciferol)] 1,000 units PO DAILY Olanzapine [Zyprexa] 2.5 mg PO 2000 Acetaminophen Tablet [TYLENOL Tablet] 650 mg PO TID Metoprolol Tartrate [Lopressor] 25 mg PO BID Discontinued Diazepam [Valium] 5 mg PO DAILY PRN PRN Reason: Sleep Or Insomnia Valsartan/Hydrochlorothiazide [Valsartan-Hctz 320-25 mg Tab] 1 tab PO DAILY O2 Device: Room Air Diet at Discharge: Heart Healthy, Low Salt, High Fiber Activity: As Tolerated Call Office For: Fever over 101 F Discontinue use of:: Alcohol, All Illegal Substances, All Types of Tobacco - DC Summary Notes Hospital Course Note:: Discharge summary on patient named KASANDRA GONZALEZ admitted to [facility] on 04/10/16 by Jose J Rodriguez MD. Date of discharge is []. Patient was initially brought to emergency room on April 10 for evaluation of diminished level responsiveness confusion hallucinations generalized weakness. Family reported that patient usually ex late when she has urinary tract infection. Please refer to the admission for further details. ED workup was undertaken her UA was pyuric. Patient is admitted to general medical floor on, treatment of IV fluids and IV antibiotic was instituted. Urine culture grew Klebsiella susceptible multiple antibiotics including penicillins cephalosporins and quinolones. During hospital stay patient has received IV Levaquin. Outpatient regimen for chronic medical conditions was continued. Her mentation has slowly improved and returned to baseline, by the time of discharge patient was fully alert awake oriented and interactive. Her activity level was gradually advanced and by time of discharge patient is able to ambulate with assistance. During hospital stay patient has remained hemodynamically stable. It was felt the patient was stable for discharge on April 12 however days she has developed fairly intense neck pain and stiffness and family did not want to take home. Medical therapy was optimized and on patient is been discharged home to the care of the family and PCP. Home health was offered to the patient and family however son declined those services. Discharge plan discussed with patient and her son Total Time: 45 min . Code: 81026 (>30min.) - Physical Exam Vital Signs: Last Vital Signs Temp 97.8 F 04/13/16 09:35 Pulse 64 04/13/16 09:35 Resp 20 04/13/16 09:35 BP 137/86 04/13/16 09:35 Pulse Ox 96 04/13/16 09:35 Oxygen Pulse Oxygen Saturation 96 O2 Device Room Air Oxygen Flow Rate Fraction of Inspired Oxygen ( FIO2) Constitutional: Alert (Awake, Fully oriented, well appearing. No apparent distress) Oriented to: Time, Person, Place - HEENT Head: Normal (normocephalic,atraumatic, trachea midline) Eye: Normal (EOMI, Sclera white) Oropharynx: Normal (moist) ENT EAC: Normal Nose: No Symptoms Reported (without discharge or bleeding) - Respiratory/Cardiovascular Respiratory: Normal - CTA (Clear to auscultation bilaterally, no wheezing,rales or rhonchi. No use of accessory muscles), Diminished Cardiovascular: Normal, Systolic murmur - GI Auscultation: Normal Palpation: Normal (soft, non distended and nontender) Tenderness: Non tender Rectal Exam: Deferred - Exam Deferred: Yes - Musculoskeletal Back: Lumbar TTP Extremities: Normal (normal tone, no cyanosis or edema) - Integumentary Skin: Normal, Warm, Dry Lymphatics: Normal - Neurologic Memory Impaired: Normal Motor Function: Normal Cranial Nerve: Normal Cerebellar: Ataxia Mood Description: Normal (Fully oriented and appropiate affect), Anxious Thought: Coherent Perception: Normal - Other Exam Other Exam Findings: Allergies fentanyl Allergy (Verified 04/11/16 02:15) See Comments OVER-SEDATION. niacin [From Niaspan Extended-Release] Allergy (Verified 04/11/16 02:15) Rash-Generalized Last Vital Signs Temp 97.8 F 04/13/16 09:35 Pulse 64 04/13/16 09:35 Resp 20 04/13/16 09:35 BP 137/86 04/13/16 09:35 Pulse Ox 96 04/13/16 09:35 04/13/16 06:29 04/13/16 06:29 Abnormal Lab Results 04/13/16 04/13/16 06:29 06:29 RBC 3.94 L Plt Count 120 L Anion Gap 17 H Glucose 111 H Microbiology 04/10/16 18:15 Urine - Clean Catch - Midstream Urine Culture - Final K.pneum. ssp pneumoniae Active Problems Altered mental status (Acute) R41.82 Delirium (Acute) R41.0 Hypertension (Acute) I10 Continue home medication. Metabolic encephalopathy (Acute) G93.41 Resolved, mentation back to normal. Patient fully alert awake oriented and interactive. Multiple family members at bedside confirmed that Urinary tract infection (Acute) N39.0 Urine culture growing Klebsiella susceptible multiple antibiotics including penicillins and quinolones. Continue IV Levaquin Dyslipidemia (Chronic) E78.5 Continue Pravachol Neck pain (Chronic) M54.2 Acute on chronic, due to DDD of the cervical spine. Adjust pain meds Patient Name: KASANDRA GONZALEZ LOC: ED : 1935 AGE: 80 Order Date:04/10/16 Date of Service: Report # [id number] Ord Physician: Myla Rojas MD Exam # [id number] Emergency Physician: Myla Rojas MD Exam(s): [id number] RAD/DG CHEST PORTABLE CLINICAL DATA: Chest pain. EXAM: PORTABLE CHEST 1 VIEW COMPARISON: None. FINDINGS: Cardiomediastinal silhouette is normal. Mediastinal contours appear intact. Mixed dense structure overlying the lower mid thorax likely represents hiatal hernia. Atherosclerotic calcifications and tortuosity of the aorta are noted. There is no evidence of focal airspace consolidation, pleural effusion or pneumothorax. Osseous structures are without acute abnormality. Soft tissues are grossly normal. IMPRESSION: No active disease. Electronically Signed By: Amber Loredo M.D. On: 04/10/2016 19:08 Electronically Signed By: Amber Ferrari MD Electronically Signed Date/Time: [id number] Dictate Date/Time: 04/10/16 1903 Technologist: Mandie Murcia Patient Name: KASANDRA GONZALEZ LOC: ED : 1935 AGE: 80 Order Date:04/10/16 Date of Service: Report # [id number] Ord Physician: Jessica Shaffer Exam # [id number] Emergency Physician: Myla Rojas MD Exam(s): [id number] CT/CT HEAD W/O CM CLINICAL DATA: Altered mental status, hallucinations EXAM: CT HEAD WITHOUT CONTRAST TECHNIQUE: Contiguous axial images were obtained from the base of the skull through the vertex without intravenous contrast. COMPARISON: MR brain 06/17/2015 FINDINGS: There is no evidence of mass effect, midline shift, or extra-axial fluid collections. There is no evidence of a space-occupying lesion or intracranial hemorrhage. There is no evidence of a cortical-based area of acute infarction. There is generalized cerebral atrophy. There is periventricular white matter low attenuation likely secondary to microangiopathy. The ventricles and sulci are appropriate for the patient's age. The basal cisterns are patent. Visualized portions of the orbits are unremarkable. The visualized portions of the paranasal sinuses and mastoid air cells are unremarkable. Cerebrovascular atherosclerotic calcifications are noted. The osseous structures are unremarkable. IMPRESSION: 1. No acute intracranial pathology. 2. Chronic microvascular disease and cerebral atrophy. Electronically Signed By: Kirstie Castellanos On: 04/10/2016 19:44 Electronically Signed By: Kirstie Castellanos MD Electronically Signed Date/Time: 947 Dictate Date/Time Patient Name: KASANDRA GONZALEZ LOC: ED : 1935 AGE: 80 Order Date:04/10/16 Date of Service: Report # [id number] Ord Physician: Jessica Shaffer Exam # [id number] Emergency Physician: Myla Rojas MD Exam(s): [id number] CT/CT HEAD W/O CM CLINICAL DATA: Altered mental status, hallucinations EXAM: CT HEAD WITHOUT CONTRAST TECHNIQUE: Contiguous axial images were obtained from the base of the skull through the vertex without intravenous contrast. COMPARISON: MR brain 06/17/2015 FINDINGS: There is no evidence of mass effect, midline shift, or extra-axial fluid collections. There is no evidence of a space-occupying lesion or intracranial hemorrhage. There is no evidence of a cortical-based area of acute infarction. There is generalized cerebral atrophy. There is periventricular white matter low attenuation likely secondary to microangiopathy. The ventricles and sulci are appropriate for the patient's age. The basal cisterns are patent. Visualized portions of the orbits are unremarkable. The visualized portions of the paranasal sinuses and mastoid air cells are unremarkable. Cerebrovascular atherosclerotic calcifications are noted. The osseous structures are unremarkable. IMPRESSION: 1. No acute intracranial pathology. 2. Chronic microvascular disease and cerebral atrophy. Electronically Signed By: Kirstie Castellanos On: 04/10/2016 19:44 Electronically Signed By: Kirstie Castellanos MD Electronically Signed Date/Time: [id number] Dictate Date/Time
[2016-04-13] MEDS ORDERED: CYANOCOBALAMIN (Vitamin B-12) 500 MCG TABLET PO SCH (12:00)
[2016-04-13] MEDS ORDERED: CHOLECALCIFEROL 1000 UNITS TAB PO SCH (12:00)
== END 2016-04-13 12:09 | disposition home or self-care (01) ==
LOC: ED 17:03 → EDINP 19:47 → INTOOBSV 19:47 → EDINP 23:52 → MPS3 04-11 10:11
PROVIDERS: ADMIT Internal Medicine; ATTEND Internal Medicine
DX: N30.01 Acute cystitis with hematuria (principal); G93.41 Metabolic encephalopathy; B96.1 Klebsiella pneumoniae [K. pneumoniae] as the cause of diseases classified elsewhere; I10 Essential (primary) hypertension; M54.9 Dorsalgia, unspecified; E78.5 Hyperlipidemia, unspecified; M54.2 Cervicalgia; Z79.82 Long term (current) use of aspirin; Z79.899 Other long term (current) drug therapy; K21.9 Gastro-esophageal reflux disease without esophagitis; Z87.891 Personal history of nicotine dependence
CPT/HCPCS: 36415; 70450; 71010; 80048; 80053; 81001; 83605; 83880; 84484; 85025; 85027; 85610; 85730; 87040; 87077; 87086; 87186; 93005; 96365; 96372; 97162; 97530; 99284; A9270; G0237; G0378; J1650; J1956; J2405; J7040; J3490